=== PATIENT | male | born 1990 | race African-American/Black ===

== ENCOUNTER 2017-06-09 11:02 | Emergency (ER) | payer MEDICARE, OTHER ==
[~2017-06-09] VITALS: Ht 188 cm; Wt 82.1 kg
[2017-06-09 11:20] VITALS: BP 114/68
[2017-06-09] MEDS ORDERED: NEOM10DR32 RIGHT EAR (11:39)
--- NOTE | 2017-06-09 11:39 | PHYS DOC ---
Past Medical History Past Medical History: No Pertinent History Past Surgical History: No Surgical History Alcohol Use: Occasionally Drug Use: None Adult General Chief Complaint Chief Complaint: EARACHE/EAR PAIN [facility] HPI Patient is a 27 year old male presents to the emergency department with complaints of an abscess in the right ear. States it's been present for 4 days. No other complaints. Review of Systems Review of Systems Constitutional: Denies fever or chills [] Eyes: Denies change in visual acuity, redness, or eye pain [] HENT: Denies nasal congestion or sore throat [] Respiratory: Denies cough or shortness of breath [] Cardiovascular: No additional information not addressed in HPI [] GI: Denies abdominal pain, nausea, vomiting, bloody stools or diarrhea [] : Denies dysuria or hematuria [] Musculoskeletal: Denies back pain or joint pain [] Integument: Abscess Neurologic: Denies headache, focal weakness or sensory changes [] Endocrine: Denies polyuria or polydipsia [] Allergies Allergies Allergies Coded Allergies Type Severity Reaction Last Updated Verified No Known Drug Allergies 06/09/17 No Physical Exam Physical Exam Constitutional: Well developed, well nourished, no acute distress, non-toxic appearance. HEENT: Right external canal, proximal, fluctuant papular lesion without erythema. [] Neck: Normal range of motion, no tenderness, supple, no lymphadenopathy Cardiovascular:Heart rate regular rhythm, no murmur [] Lungs & Thorax: Bilateral breath sounds clear to auscultation [] Skin: Warm, dry, no erythema, no rash. [] EKG EKG [] Radiology/Procedures Radiology/Procedures Procedure note: Area of concern cleansed with alcohol wipe. #18-gauge utilized to perforate the abscess. Small amount of purulent discharge. Patient tolerated procedure well. [] Course & Med Decision Making Course & Med Decision Making Pertinent Labs and Imaging studies reviewed. (See chart for details) [] Dragon Disclaimer Dragon Disclaimer This electronic medical record was generated, in whole or in part, using a voice recognition dictation system. Departure Departure Impression: Primary Impression: Abscess, ear canal Disposition: 01 HOME, SELF-CARE Condition: STABLE Referrals: NO PCP (PCP) Patient Instructions: Abscess, Care After Scripts Neomycin/Polymyxin B Sulf/Hc (OIOPVVIX-JFIXJPYKH-ED EAR SUSP) 10 Ml Drops.susp 3 DROP RIGHT EAR TID for 10 Days, #10 ML Prov: ANA MARÍA HUDSON SENIOR GAMES TECHNICIAN 06/09/17 Problem Qualifiers Primary Impression: Abscess, ear canal Laterality: right Qualified Codes: H60.01 - Abscess of right external ear ANA MARÍA HUDSON SENIOR GAMES TECHNICIAN Jun 09, 2017 11:39
== END 2017-06-09 11:45 | disposition home or self-care (01) ==
LOC: ER 11:02
DX: H60.01 Abscess of right external ear (principal)
CPT/HCPCS: 69020; 99283; 99284-25

== ENCOUNTER 2017-10-29 17:11 | Emergency (ER) | payer OTHER, MEDICARE ==
[2017-10-29] MEDS: LIDOCAINE 2% 20 ML VIAL. IJ (18:04)
== END 2017-10-29 19:36 | disposition home or self-care (01) ==
LOC: ER 17:11
DX: L03.011 Cellulitis of right finger (principal); F17.210 Nicotine dependence, cigarettes, uncomplicated
CPT/HCPCS: 10060; 99283

== ENCOUNTER 2019-02-20 17:23 | Emergency (ER) | payer MEDICARE, OTHER ==
[~2019-02-20] VITALS: Ht 188 cm; Wt 87.5 kg
[~2019-02-20 17:23] MED LIST: CEPH500C PO; NEOM10DR32 RIGHT EAR; SULF1TAB24 PO
[2019-02-20 18:06] VITALS: BP 147/87
--- NOTE | 2019-02-20 18:58 | RAD ---
PROCEDURE: CHEST PA LATERAL CLINICAL INDICATION: ER PATIENT. NON PRODUCTIVE COUGH, RIGHT SIDE INTERMITTENT ATRAUMATIC CHEST PAIN. PRIOR XRAY. COMPARISON: None FINDINGS: No pneumothorax identified. Cardiac and mediastinal contours unremarkable. No pulmonary consolidation or acute airspace disease. No acute osseous abnormalities identified. IMPRESSION: No pulmonary consolidation or acute airspace disease. Electronically signed by: Joe Watts DO (02/20/2019 6:55 PM) [facility]
[2019-02-20] MEDS ORDERED: VENTOLIN HFA18 GM INH (19:05)
[2019-02-20] MEDS ORDERED: ASPI325T8 PO (19:05)
[2019-02-20] MEDS ORDERED: BENZ100C PO (19:05)
[2019-02-20] MEDS ORDERED: PRED50TA PO (19:05)
--- NOTE | 2019-02-20 19:05 | PHYS DOC ---
Past Medical History Past Medical History: No Pertinent History (CHARLI BERRIOS APRN) Past Surgical History: No Surgical History (CHARLI BERRIOS APRN) Alcohol Use: Occasionally Drug Use: None (CHARLI BERRIOS APRN) Adult General Chief Complaint Chief Complaint: COUGH HPI HPI Patient is a 28 year old male with history of smoking who presents to the ED today complaining of a productive cough for couple days. Patient denies any fever. Denies any nasal congestion. States his has chest pain on coughing. Patient also states he believes he has hypertension and would like to start his treatment. He states nobody has diagnosed him with it but he has several family members who have history of high blood pressure. (CHARLI BERRIOS APRN) Review of Systems Review of Systems Constitutional: Denies fever or chills [] Eyes: Denies change in visual acuity, redness, or eye pain [] HENT: Denies nasal congestion or sore throat [] Respiratory: Reports cough denies shortness of breath [] Cardiovascular: No additional information not addressed in HPI [] GI: Denies abdominal pain, nausea, vomiting, bloody stools or diarrhea [] : Denies dysuria or hematuria [] Musculoskeletal: Denies back pain or joint pain [] Integument: Denies rash or skin lesions [] Neurologic: Denies headache, focal weakness or sensory changes [] All other systems were reviewed and found to be within normal limits, except as documented in this note. (CHARLI BERRIOS APRN) Allergies Allergies Allergies Coded Allergies Type Severity Reaction Last Updated Verified No Known Drug Allergies 06/09/17 No (ADY DASILVA MD) Physical Exam Physical Exam Constitutional: Well developed, well nourished, no acute distress, non-toxic appearance. [] HENT: Normocephalic, atraumatic, bilateral external ears normal, oropharynx moist, no oral exudates, nose normal. [] Eyes: PERRLA, EOMI, conjunctiva normal, no discharge. [] Neck: Normal range of motion, no tenderness, supple, no stridor. [] Cardiovascular:Heart rate regular rhythm, no murmur [] Lungs & Thorax: Bilateral breath sounds clear to auscultation [] Abdomen: Bowel sounds normal, soft, no tenderness, no masses, no pulsatile masses. [] Skin: Warm, dry, no erythema, no rash. [] Back: No tenderness, no CVA tenderness. [] Extremities: No tenderness, no cyanosis, no clubbing, ROM intact, no edema. [] Neurologic: Alert and oriented X 3, normal motor function, normal sensory function, no focal deficits noted. [] Psychologic: Affect normal, judgement normal, mood normal. [] (CHARLI BERRIOS APRN) Current Patient Data Vital Signs Vital Signs Date Time Temp Pulse Resp B/P (MAP) Pulse Ox O2 Delivery O2 Flow Rate FiO2 02/20/19 18:06 98.6 98 16 147/87 (107) 97 Room Air 98.6 (ADY DASILVA MD) EKG EKG [] (CHARLI BERRIOS APRN) Radiology/Procedures Radiology/Procedures [] (CHARIL BERRIOS APRN) Course & Med Decision Making Course & Med Decision Making Pertinent Labs and Imaging studies reviewed. (See chart for details) This is a 28-year-old male patient presenting to the ED today complaining of cough, nasal smoker. Encouraged to consider smoking cessation, chest x-ray interpreted by radiologist as negative patient given prescription for aspirin as needed for pain. Given albuterol inhaler, prednisone, Tessalon Perles for bronchitis. We provided him a list of doctors to follow up as an outpatient because he states he believes he has high blood pressure and needs to be on medication. BP in the ED 147/87. (CHARLI BERRIOS APRN) Course & Med Decision Making 02/24/19 at 0606 was not involved in the care of this patient. Ady Dasilva M.D. (ADY DASILVA MD) Dragon Disclaimer Dragon Disclaimer This electronic medical record was generated, in whole or in part, using a voice recognition dictation system. (CHARLI BERRIOS APRN) Departure Departure Impression: Primary Impression: Acute bronchitis Additional Impression: Smoking addiction Disposition: 01 HOME, SELF-CARE Condition: STABLE Referrals: NO PCP (PCP) Follow-up with one of the doctors from the list provided Patient Instructions: Acute Bronchitis, [id number], Smoking Cessation Additional Instructions: You were evaluated in the emergency room, your symptoms are consistent with bronchitis, consider smoking cessation. Please contact one of the provided primary care doctors and follow-up for blood pressure management and care. Take the prescribed medications as ordered. Scripts Albuterol Sulfate (VENTOLIN HFA INHALER) 18 Gm Hfa.aer.ad 2 PUFF INH Q4HRS for FOR ASTHMA, #1 INHALER 0 Refills Prov: CHARLI BERRIOS APRN 02/20/19 Benzonatate (TESSALON PERLE) 100 Mg Capsule 1 CAP PO TID, #30 CAP Prov: CHARLI BERRIOS APRN 02/20/19 Prednisone (PREDNISONE) 50 Mg Tablet 1 TAB PO DAILY, #5 TAB Prov: CHARLI BERRIOS APRN 02/20/19 Aspirin (ASPIRIN) 325 Mg Tablet 1-2 TAB PO Q12HR PRN for PAIN, #30 TAB 5 Refills Prov: CHARLI BERRIOS APRN 02/20/19 Problem Qualifiers Primary Impression: Acute bronchitis Bronchitis organism: unspecified organism Qualified Codes: J20.9 - Acute bronchitis, unspecified CHARLI BERRIOS APRN Feb 20, 2019 19:05 ADY DASILVA MD Feb 24, 2019 06:07
== END 2019-02-20 19:12 | disposition home or self-care (01) ==
LOC: ER 17:23
DX: J20.9 Acute bronchitis, unspecified (principal); F17.200 Nicotine dependence, unspecified, uncomplicated
CPT/HCPCS: 71046; 99283

== ENCOUNTER 2019-10-28 19:31 | Emergency (ER) | payer MEDICARE, MEDICAID ==
[~2019-10-28] VITALS: Ht 188 cm; Wt 88.5 kg
[~2019-10-28 19:31] MED LIST changes: +ASPI325T8 PO; +BENZ100C PO; +PRED50TA PO; +VENTOLIN HFA18 GM INH
[2019-10-28 20:10] VITALS: BP 135/80
[2019-10-28] MEDS ORDERED: METH4TAB2 PO (20:53)
[2019-10-28] MEDS ORDERED: HYDR-3164 PO (20:53)
[2019-10-28] MEDS ORDERED: IBUP-1007 PO (20:53)
--- NOTE | 2019-10-28 20:53 | PHYS DOC ---
Past Medical History Past Medical History: No Pertinent History Past Surgical History: No Surgical History Alcohol Use: Occasionally Drug Use: None Adult General Chief Complaint Chief Complaint: GENERALIZED BODY ACHES HPI HPI Patient is a 29 year old male who presents with the [employer] and lifts heavy boxes that are over 50 pounds and does a lot of twisting at the waist. States he woke up with right sharp shooting pain down the right back of his leg and pain on the right side of his back. Patient rates pain 8 out of 10. He states he took ibuprofen. Review of Systems Review of Systems Musculoskeletal: back pain and right lower back pain or joint pain [] All other systems were reviewed and found to be within normal limits, except as documented in this note. Allergies Allergies Allergies Coded Allergies Type Severity Reaction Last Updated Verified No Known Drug Allergies 06/09/17 No Physical Exam Physical Exam Constitutional: Well developed, well nourished, no acute distress, non-toxic appearance. [] HENT: Normocephalic, atraumatic, bilateral external ears normal, oropharynx moist, no oral exudates, nose normal. [] Eyes: PERRLA, EOMI, conjunctiva normal, no discharge. [] Neck: Normal range of motion, no tenderness, supple, no stridor. [] Cardiovascular:Heart rate regular rhythm, no murmur [] Lungs & Thorax: Bilateral breath sounds clear to auscultation [] Abdomen: Bowel sounds normal, soft, no tenderness, no masses, no pulsatile masses. [] Skin: Warm, dry, no erythema, no rash. [] Back: Right lower back tenderness, no CVA tenderness. [] Extremities: No tenderness, no cyanosis, no clubbing, ROM intact, no edema. [] Neurologic: Alert and oriented X 3, normal motor function, normal sensory fu nction, no focal deficits noted. [] Psychologic: Affect normal, judgement normal, mood normal. [] Current Patient Data Vital Signs Vital Signs Date Time Temp Pulse Resp B/P (MAP) Pulse Ox O2 Delivery O2 Flow Rate FiO2 10/28/19 20:10 98.2 88 12 135/80 (98) 98 Room Air 98.2 Lab Values Laboratory Tests Test 10/28/19 20:35 Influenza Type A Antigen Negative (NEGATIVE) Influenza Type B Antigen Negative (NEGATIVE) EKG EKG [] Radiology/Procedures Radiology/Procedures [] Course & Med Decision Making Course & Med Decision Making Tenderness to the right back with palpation. There is no bruising or abrasion or swelling. Patient states the pain is worse with moving and if he is just sitting still the pain is not very bad. He states that the pain is an 8 out of 10 when he is moving. Patient is ambulatory with steady gait. Skin pink warm and dry. Speaks in full clear sentences. Alert and oriented. Patient denies numbness or tingling or incontinence. No weakness is in any extremities. No swelling in joints. Dragon Disclaimer Dragon Disclaimer This electronic medical record was generated, in whole or in part, using a voice recognition dictation system. Departure Departure Impression: Primary Impression: Back pain Additional Impression: Sciatic leg pain Disposition: HOME, SELF-CARE Condition: STABLE Referrals: NO PCP (PCP) Patient Instructions: Muscle Strain, Sciatica, [id number] Additional Instructions: Follow up with primary care provider or work comp. Take medications as prescribed. Use heating pad, over the counter icy hot. Scripts Ibuprofen (IBUPROFEN) 600 Mg Tablet 600 MG PO PRN Q6HRS PRN for INFLAMMATION, #20 TAB Prov: EVE SUGGS APRN 10/28/19 Hydrocodone/Apap 5-325 (NORCO 5-325 TABLET) 1 Each Tablet 1 TAB PO PRN Q6HRS PRN for PAIN, #8 TAB 0 Refills Prov: EVE SUGGS APRN 10/28/19 Methylprednisolone (MEDROL) 4 Mg Tab.ds.pk 1 PKG PO UD, #1 PKG Prov: EVE SUGGS APRN 10/28/19 Problem Qualifiers Primary Impression: Back pain Back pain location: thoracic back pain Chronicity: acute Back pain laterality: right Qualified Codes: M54.6 - Pain in thoracic spine EVE SUGGS APRN Oct 28, 2019 20:53
[2019-10-28 21:04] LABS: INFLUENZA A PATIENT NEGATIVE (NEGATIVE); INFLUENZA B PATIENT NEGATIVE (NEGATIVE)
== END 2019-10-28 21:01 | disposition home or self-care (01) ==
LOC: ER 19:31
DX: M54.41 Lumbago with sciatica, right side (principal); M54.6 Pain in thoracic spine
CPT/HCPCS: 87804; 99284

== ENCOUNTER 2019-11-26 20:11 | Emergency (ER) | payer MEDICARE, MEDICAID ==
[~2019-11-26] VITALS: Ht 188 cm; Wt 83.5 kg
[~2019-11-26 20:11] MED LIST changes: +HYDR-3164 PO; +IBUP-1007 PO; +METH4TAB2 PO
[2019-11-26 20:20] VITALS: BP 143/88
--- NOTE | 2019-11-26 21:15 | PHYS DOC ---
Past Medical History Past Medical History: No Pertinent History (CHARLI BERRIOS APRN) Past Surgical History: No Surgical History (CHARLI BERRIOS APRN) Alcohol Use: Occasionally Drug Use: None (CHARLI BERRIOS APRN) Adult General Chief Complaint Chief Complaint: LOWER EXT PAIN HPI HPI Patient is a 29 year old male who presents to the ED today complaining of 9 out of 10 right lower extremity pain that has been going on since last month. Patient reports the pain is worse when he is at work at [employer] because he has to bend lift and move boxes. Denies any known injury. He states has been seen in the ED and [facility] doctor but they could not find anything wrong with him. He he reports the pain is in his muscles describes the pain as throbbing. (CHARLI BERRIOS APRN) Review of Systems Review of Systems Constitutional: Denies fever or chills [] Musculoskeletal: Reports right lower extremity pain, denies back pain today Integument: Denies rash or skin lesions [] Neurologic: Denies headache, focal weakness or sensory changes [] All other systems were reviewed and found to be within normal limits, except as documented in this note. (CHARLI BERRIOS APRN) Allergies Allergies Allergies Coded Allergies Type Severity Reaction Last Updated Verified No Known Drug Allergies 06/09/17 No (LEXY ZIEGLER DO) Physical Exam Physical Exam Constitutional: Well developed, well nourished, no acute distress, non-toxic appearance. [] Back: No tenderness, no CVA tenderness. [] Extremities: No tenderness, no cyanosis, no clubbing, ROM intact, no edema. Negative Homans sign to the right lower extremity Neurologic: Alert and oriented X 3, normal motor function, normal sensory function, no focal deficits noted. [] Psychologic: Affect normal, judgement normal, mood normal. [] (CHARLI BERRIOS APRN) Current Patient Data Vital Signs Vital Signs Date Time Temp Pulse Resp B/P (MAP) Pulse Ox O2 Delivery O2 Flow Rate FiO2 11/26/19 20:20 97.7 86 18 143/88 (106) 95 Room Air 97.7 (LEXY ZIEGLER DO) EKG EKG [] (CHARLI BERRIOS APRN) Radiology/Procedures Radiology/Procedures [] (CHARLI BERRIOS APRN) Course & Med Decision Making Course & Med Decision Making Pertinent Labs and Imaging studies reviewed. (See chart for details) This is a 29-year-old male patient presenting to the ED today with musculoskeletal pain to the right lower extremity from working at [employer] where he has to bend or lift and carry boxes. Patient was also requesting a note for work for an extended period of time. Provided a note for work for 3 days. Informed him he has to follow up with the specialist or his own PCP or his own job if he needs more days. (CHARLI BERRIOS APRN) Dragon Disclaimer Dragon Disclaimer This electronic medical record was generated, in whole or in part, using a voice recognition dictation system. (CHARLI BERRIOS APRN) Departure Departure Impression: Primary Impression: Right leg pain Disposition: HOME, SELF-CARE Condition: STABLE Referrals: NO PCP (PCP) TAHIRA FERNANDEZ MD follow up in 1 week Patient Instructions: Musculoskeletal Pain Additional Instructions: You were evaluated in the emergency room with musculoskeletal pain to the right lower extremity. Try to ice and elevate the extremity. Take the prescribed medications as needed for pain. Kindly contact the provided orthopedic doctor and follow-up in 1-2 weeks. Scripts Diclofenac Potassium (DICLOFENAC POTASSIUM) 50 Mg Tablet 1 TAB PO BID, #20 TAB 0 Refills Prov: CHARLI BERRIOS APRN 11/26/19 Cyclobenzaprine Hcl (CYCLOBENZAPRINE HCL) 10 Mg Tablet 1 TAB PO TID, #30 TAB Prov: CHARLI BERRIOS APRN 11/26/19 Attending Signature Attending Signature I have reviewed the PA/[employer]GER's note and plan of care. I was available for consultation as needed at all times during the patient's visit in the emergency department. I agree with the clinical impression, plan and disposition. (LEXY ZIEGLER DO) CHARLI BERRIOS APRN Nov 26, 2019 21:15 LEXY ZIEGLER DO Nov 28, 2019 19:19
[2019-11-26] MEDS ORDERED: DICL50TA2 PO (21:23)
[2019-11-26] MEDS ORDERED: CYCL10TA2 PO (21:23)
== END 2019-11-26 21:30 | disposition home or self-care (01) ==
LOC: ER 20:11
DX: M79.604 Pain in right leg (principal); X50.9XXA Other and unspecified overexertion or strenuous movements or postures, initial encounter; Y93.89 Activity, other specified; Y92.59 Other trade areas as the place of occurrence of the external cause; Y99.0 Civilian activity done for income or pay
CPT/HCPCS: 99283

== ENCOUNTER 2020-08-26 10:09 | Emergency (ER) | payer MEDICARE, MEDICAID ==
[~2020-08-26] VITALS: Ht 177.8 cm; Wt 88.6 kg
[~2020-08-26 10:09] MED LIST changes: +CYCL10TA2 PO; +DICL50TA2 PO
[2020-08-26] MEDS ORDERED: LIDOCAINE 1% PF 2 ML VIAL. INJ ONE (11:30)
[2020-08-26] MEDS ORDERED: CLIN150C14 PO (12:38)
--- NOTE | 2020-08-26 12:39 | PHYS DOC ---
Past Medical History Past Medical History: No Pertinent History Past Surgical History: No Surgical History Smoking Status: Current Every Day Smoker Additional Information: 11/20 ppd Alcohol Use: Occasionally Drug Use: None General Adult EDM: Chief Complaint: ABSCESS HPI: HPI: Patient is a 30 year old AA male who presents to the emergency department with complaints of a red, tender, abscess to the right side of his face that began a month ago. Patient states he is tried to squeeze the area but has not had any blood or pus drained from it. He denies any fever, dental pain, sore throat, ear pain, neck pain, headache, numbness, tingling, or weakness of the affected area. He is unsure when his last tetanus shot was. He currently rates his pain a 9 out of 10 on the pain scale, he denies any alleviating factors the pain is worse if the area is touched. Review of Systems: Review of Systems: Complete ROS is negative unless otherwise stated in the HPI. Heart Score: Risk Factors: Risk Factors: DM, Current or recent (<one month) smoker, HTN, HLP, family history of CAD, obesity. Risk Scores: Score 0 - 3: 2.5% MACE over next 6 weeks - Discharge Home Score 4 - 6: 20.3% MACE over next 6 weeks - Admit for Clinical Observation Score 7 - 10: 72.7% MACE over next 6 weeks - Early Invasive Strategies Current Medications: Current Medications Medications (Trade) Dose Ordered Sig/Tucker Start Time Stop Time Status Last Admin Dose Admin Diphtheria/ Tetanus/Acell Pertussis (ADACEL TDap SYRINGE) 0.5 ml ONCE ONCE 08/26/20 12:30 08/26/20 12:31 UNV Lidocaine HCl (Xylocaine-Mpf 1% 2ml Vial) 6 ml 1X ONCE 08/26/20 11:30 08/26/20 11:31 DC 08/26/20 11:47 6 ML Allergies: Allergies: Allergies Coded Allergies Type Severity Reaction Last Updated Verified No Known Drug Allergies 06/09/17 No Physical Exam: PE: Constitutional: Well developed, well nourished, no acute distress, non-toxic appearance. [] HENT: Normocephalic, atraumatic, bilateral external ears normal, nose normal. [] Eyes: PERRLA, EOMI, conjunctiva normal, no discharge. [] Neck: Normal range of motion, supple, nontender, no stridor. [] Cardiovascular:Heart rate regular rhythm Lungs & Thorax: Respirations even and unlabored, no retractions, no respiratory distress Skin: Warm, dry; 3 cm diameter area of edema, erythema, and warmth noted to righ t lower cheek of face with central pustule, no active bleeding or discharge consistent with a cutaneous abscess. Extremities: No cyanosis, ROM intact, no edema. [] Neurologic: Alert and oriented X 3, no focal deficits noted. [] Psychologic: Affect normal, judgement normal, mood normal. [] Current Patient Data: Vital Signs: Vital Signs Date Time Temp Pulse Resp B/P (MAP) Pulse Ox O2 Delivery O2 Flow Rate FiO2 08/26/20 10:45 98.2 80 20 129/75 (93) 97 Room Air 98.2 EKG: EKG: [] Radiology/Procedures: Radiology/Procedures: Indication: abscess Procedure: The patient was positioned appropriately. Local anesthesia was lidocaine with epinephrine. An incision was then made over the apex of the lesion and large amount of bloody pus material was expressed. The drainage cavity was irrigated with 20 mL of normal saline and packed with sterile gauze. The patients tetanus status updated as needed. There was minimal blood loss. The patient tolerated the procedure well. Complications: none.[] Course & Med Decision Making: Course & Med Decision Making Pertinent Labs and Imaging studies reviewed. (See chart for details) [] Dragon Disclaimer: Dragon Disclaimer: This electronic medical record was generated, in whole or in part, using a voice recognition dictation system. Departure Departure Impression: Primary Impression: Cutaneous abscess of face Disposition: 01 DC HOME SELF CARE/HOMELESS Condition: STABLE Referrals: NO PCP (PCP) Patient Instructions: Abscess, Care After Additional Instructions: Fill the prescription(s) and use as directed. You may take tylenol or ibuprofen as needed for pain. Leave the Dressing that was placed in the ER in place for the next 24 hours, then change the dressing twice daily and apply antibiotic ointment as needed. You may apply warm, moist packs to the area to help decrease discomfort. Follow up with your primary care doctor or return to the ER in 48 hours to have wound rechecked and packing removed. Return to the ER sooner if your symptoms worsen or you develop a fever Scripts Clindamycin Hcl (CLINDAMYCIN HCL) 150 Mg Capsule 450 MG PO TID for 7 Days, #63 CAP 0 Refills Prov: SHREYAS MCCANN APRN 08/26/20 SHREYAS MCCANN APRN Aug 26, 2020 12:39
[2020-08-26 12:43] VITALS: BP 161/76
[2020-08-26] MEDS ORDERED: DIPH,PERTUSS(ACELL),TET VAC/PF 0.5 ML SYRINGE. VAX IM ONE (12:45)
== END 2020-08-26 13:13 | disposition home or self-care (01) ==
LOC: ER 10:09
DX: L02.01 Cutaneous abscess of face (principal); R60.0 Localized edema; L53.9 Erythematous condition, unspecified; F17.200 Nicotine dependence, unspecified, uncomplicated
CPT/HCPCS: 10061; 90471; 90715; 99284; J3490

== ENCOUNTER 2020-08-28 11:24 | Emergency (ER) | payer MEDICARE, MEDICAID ==
[~2020-08-28] VITALS: Ht 190.5 cm; Wt 88.4 kg
[~2020-08-28 11:24] MED LIST changes: +CLIN150C14 PO
[2020-08-28 11:44] VITALS: BP 123/88
--- NOTE | 2020-08-28 12:21 | PHYS DOC ---
Past Medical History Past Medical History: No Pertinent History Past Surgical History: No Surgical History Smoking Status: Current Every Day Smoker Alcohol Use: Occasionally Drug Use: None General Adult EDM: Chief Complaint: WOUND RECHECK/SUTURE REMOVAL HPI: HPI: Patient is a 30 year old male who presents with 2 days ago had a I&D done to the right check with packing applied. Patient states he has been taking the clindamycin and is feeling better and there is less pain and tenderness. Denies fevers, nausea, vomiting, chest pain, soa, chills, increased facial pain, increased swelling, increased redness. Denies any pain. Review of Systems: Review of Systems: Constitutional: Denies fever or chills. [] Eyes: Denies change in visual acuity. [] HENT: Denies nasal congestion or sore throat. [] Respiratory: Denies cough or shortness of breath. [] Cardiovascular: Denies chest pain or edema. [] GI: Denies abdominal pain, nausea, vomiting, bloody stools or diarrhea. [] : Denies dysuria. [] Musculoskeletal: Denies back pain or joint pain. [] Integument: Denies rash. Open abscess to right cheek with packing in place. [] Neurologic: Denies headache, focal weakness or sensory changes. [] Endocrine: Denies polyuria or polydipsia. [] Lymphatic: Denies swollen glands. [] Psychiatric: Denies depression or anxiety. [] Heart Score: Risk Factors: Risk Factors: DM, Current or recent (<one month) smoker, HTN, HLP, family history of CAD, obesity. Risk Scores: Score 0 - 3: 2.5% MACE over next 6 weeks - Discharge Home Score 4 - 6: 20.3% MACE over next 6 weeks - Admit for Clinical Observation Score 7 - 10: 72.7% MACE over next 6 weeks - Early Invasive Strategies Allergies: Allergies: Allergies Coded Allergies Type Severity Reaction Last Updated Verified No Known Drug Allergies 06/09/17 No Physical Exam: PE: Constitutional: Well developed, well nourished, no acute distress, non-toxic appearance. [] HENT: Normocephalic, atraumatic, bilateral external ears normal, oropharynx moist, no oral exudates, nose normal. [] Eyes: PERRLA, EOMI, conjunctiva normal, no discharge. [] Neck: Normal range of motion, no tenderness, supple, no stridor. [] Cardiovascular:Heart rate regular rhythm, no murmur [] Lungs & Thorax: Bilateral breath sounds clear to auscultation [] Abdomen: Bowel sounds normal, soft, no tenderness, no masses, no pulsatile masses. [] Skin: Warm, dry, no erythema, no rash. Open abscess to right cheek with scant purulent green, white drainage. Packing is removed. [] Back: No tenderness, no CVA tenderness. [] Extremities: No tenderness, no cyanosis, no clubbing, ROM intact, no edema. [] Neurologic: Alert and oriented X 3, normal motor function, normal sensory function, no focal deficits noted. [] Psychologic: Affect normal, judgement normal, mood normal. [] Current Patient Data: Vital Signs: Vital Signs Date Time Temp Pulse Resp B/P (MAP) Pulse Ox O2 Delivery O2 Flow Rate FiO2 08/28/20 11:44 97.9 97 16 123/88 (100) 98 97.9 EKG: EKG: [] Radiology/Procedures: Radiology/Procedures: [] Course & Med Decision Making: Course & Med Decision Making Pertinent Labs and Imaging studies reviewed. (See chart for details) See HPI. Packing is removed. There is no purulent green-white drainage. There is no cellulitis seen. There is minimal swelling to the area. Afebrile. Patient states is feeling and looking much better. New dressing is applied. Patient to continue taking the clindamycin. Patient is told that if he feels that he is not getting better or it starts to look worse he can return to the emergency room. [] Christine Disclaimer: Christine Disclaimer: This electronic medical record was generated, in whole or in part, using a voice recognition dictation system. Departure Departure Impression: Primary Impression: Encounter for wound re-check Disposition: 01 DC HOME SELF CARE/HOMELESS Condition: STABLE Referrals: NO PCP (PCP) Patient Instructions: Wound Care, [id number], Wound Check Additional Instructions: Follow-up of primary care provider if needed. Watch for signs of infection. Always return to emergency room if you feel like the wound is getting worse. Continue taking your antibiotic as prescribed. You can also apply antibiotic ointment to the area. Keep it clean and covered. EVE SUGGS SET UP / OPERATOR Aug 28, 2020 12:21
== END 2020-08-28 12:34 | disposition home or self-care (01) ==
LOC: ER 11:24
DX: L02.01 Cutaneous abscess of face (principal); R60.0 Localized edema; F17.200 Nicotine dependence, unspecified, uncomplicated
CPT/HCPCS: 99282

== ENCOUNTER 2021-04-16 11:07 | Emergency (ER) | payer OTHER, MEDICAID ==
[~2021-04-16] VITALS: Ht 188 cm; Wt 93.5 kg
[~2021-04-16 11:07] MED LIST changes: -CLIN150C14 PO; +CLIN150C15 PO
[2021-04-16 11:15] VITALS: BP 139/88
[2021-04-16] MEDS ORDERED: CEPH500C PO (12:08)
[2021-04-16] MEDS ORDERED: SULF1TAB24 PO (12:08)
--- NOTE | 2021-04-16 12:10 | PHYS DOC ---
Past Medical History Past Medical History: No Pertinent History Past Surgical History: No Surgical History Smoking Status: Current Every Day Smoker Alcohol Use: Occasionally Drug Use: None General Adult EDM: Chief Complaint: SKIN PROBLEM HPI: HPI: 30-year-old AA male presents the ED with complaints of raised bump over his right cheek that has been present for the past 4 months, has increased in size over the past 1 month, requesting to "cut it out." States he was seen here and had an I&D awhile back. Patient denies any history of diabetes, immunocompromised state or history of MRSA. Is not on any antibiotics. Reports he is not concerned about cosmetic appearance, no history of keloids. Review of Systems: Review of Systems: Constitutional: Denies fever or chills. [] Eyes: Denies change in visual acuity. [] HENT: Denies nasal congestion or sore throat. [] Respiratory: Denies cough or shortness of breath. [] Cardiovascular: Denies chest pain or edema. [] GI: Denies abdominal pain, nausea, vomiting, bloody stools or diarrhea. [] : Denies dysuria. [] Musculoskeletal: Denies back pain or joint pain. [] Integument: Denies rash. [] Neurologic: Denies headache, focal weakness or sensory changes. [] Endocrine: Denies polyuria or polydipsia. [] Lymphatic: Denies swollen glands. [] Psychiatric: Denies depression or anxiety. [] Heart Score: C/O Chest Pain: No Risk Factors: Risk Factors: DM, Current or recent (<one month) smoker, HTN, HLP, family history of CAD, obesity. Risk Scores: Score 0 - 3: 2.5% MACE over next 6 weeks - Discharge Home Score 4 - 6: 20.3% MACE over next 6 weeks - Admit for Clinical Observation Score 7 - 10: 72.7% MACE over next 6 weeks - Early Invasive Strategies Allergies: Allergies: Allergies Coded Allergies Type Severity Reaction Last Updated Verified No Known Drug Allergies 06/09/17 No Physical Exam: PE: Constitutional: Well developed, well nourished, no acute distress, non-toxic appearance. HENT: Normocephalic, atraumatic, right check with raised soft 1.5x1.5 lesion over cheek bones (no oral involvement) with no associated rash or induration Eyes: EOMI, conjunctiva normal, no discharge. Neck: Normal range of motion, supple, Cardiovascular: S1/2 present, regular rhythm Lungs & Thorax: Speaking in full sentences, bilateral equal chest rise, no tachypnea or increased work of breathing Abdomen: soft, no tenderness, Skin: Warm, dry, no erythema, no rash. [] Extremities: No tenderness, no cyanosis, no lower extremity edema Neurologic: Alert and oriented X 3, normal motor function, normal sensory function, no focal deficits noted. [] Psychologic: Affect normal, judgement normal, mood normal. [] Current Patient Data: Vital Signs: Vital Signs Date Time Temp Pulse Resp B/P (MAP) Pulse Ox O2 Delivery O2 Flow Rate FiO2 04/16/21 11:15 98.1 83 16 139/88 (105) 99 Room Air 98.1 EKG: EKG: [] Radiology/Procedures: Radiology/Procedures: [] Course & Med Decision Making: Course & Med Decision Making Pertinent Labs and Imaging studies reviewed. (See chart for details) Concern for right facial abscess x4 months?? vs dermoid cysts vs ingrown hair? Given duration of symptoms and physical exam, will start oral antibiotics to cover for community-acquired MRSA and have patient follow-up with dermatology or plastic surgery for urgent follow-up and definitive management. Will discharge home with strict ED return precautions were given for fever, rash, neck pain, difficulties breathing or facial swelling. Encouraged urgent outpatient follow- up with PMD/wound care in 48 h for wound check, definitive management with plastic surgery dermatology referrals given. Life-threatening processes were considered but are low suspicion at this time, given history, physical exam and ED workup. Pt was educated on all prescription medications and adverse effects. All patient's questions were answered and pt was stable at time of discharge. Life/limb-threatening differential includes but is not limited to, erythema multiforme, melgar-jerilyn syndrome, toxic epidermal necrolysis, staphylococcal scalded skin syndrome, necrotizing fasciitis/myositis/cellulitis, purpura fulminans, heparin or warfarin induced skin necrosis, angioedema, anaphylaxis drug rash, disseminated intravascular coagulation, disseminated gonococcal disease, vasculitis, septicemia, petechial disorder or coagulopathy, viral exanthem, Kawasaki's disease or life-threatening burn requiring burn center management or escharotomy. I spoken with the patient and her caregivers. I explained the patient's condition, diagnoses and treatment plan based on the information available to me at this time. I have answered the patient and her caregiver's questions and addressed any concerns. The patient and her caregivers have a good understanding of patient's diagnosis, condition and treatment plan as can be expected at this point. Vital signs have been stable. Patient's condition is stable and appropriate for discharge from the emergency department. Patient will pursue further outpatient evaluation with primary care physician or other designated or consulting physician as outlined in the discharge inst ructions. The patient and/or caregivers are agreeable to this plan of care and follow-up instructions have been explained in detail. The patient and/or caregivers have received these instructions in written form and have expressed an understanding of the discharge instructions. The patient and/or caregivers are aware that any significant change of condition or worsening of symptoms should prompt immediate return to this or the closest emergency department or call to 911. Christine Disclaimer: Christine Disclaimer: This electronic medical record was generated, in whole or in part, using a voice recognition dictation system. Departure Departure Impression: Primary Impression: Cutaneous abscess of face Disposition: 01 HOME / SELF CARE / HOMELESS Condition: STABLE Referrals: NO PCP (PCP) wound check in 48 hours or FOLLOW UP WITH FAMILY MEDICINE: [address] [place] [address] Patient Instructions: Abscess, Ingrown Hair Additional Instructions: FOLLOW UP WITH WOUND CARE: In 48 hours [facility] [address], [address] [place] [address] Dermatology [place] [address] [place] [address] OR Follow up as needed with plastic surgery: For definitive management Angela Sánchez MD Plastic & Reconstructive Surgery [facility] Plastic Surgery, [address] [place] [address] EMERGENCY DEPARTMENT GENERAL DISCHARGE INSTRUCTIONS Thank you for coming to [facility] Emergency Department (ED) today and trusting us with you care. We trust that you had a positive experience in our Emergency Department. If you wish to speak to the department management, you may call the Director at [phone]. YOUR FOLLOW UP INSTRUCTIONS ARE FOLLOWS: 1. Do you have a private Doctor? If you do not have a private doctor, please ask for a resource list of physicians or clinics that may be able to assist you with follow up care. 2. The Emergency Physicain has interpreted your x-rays. The X-Ray specialist will also review them. If there is a change in the findings, you will be notified in 48 hours when at all possible. 3. A lab test or culture has been done, your results will be reviewed and you will be notified if you need a change in treatment. ADDITIONAL INSTRUCTIONS AND INFORMATION: 1. Your care today has been supervised by a physician who is specially trained in emergency care. Many problems require more than one evaluation for a complete diagnosis and treatment. We recommend that you schedule your follow up appointment as recommended to ensure complete treatment of you illness or injury. If you are unable to obtain follow up care and continue to have a problem, or if your condition worsens, we recommend that you return to the ED. 2. We are not able to safely determine your condition over the phone nor are we able to give sound medical advice over the phone. For these safety reasons, if you call for medical advice we will ask you to come to the ED for further evaluation. 3. If you have any questions regarding these discharge instructions please call the ED at [phone]. SAFETY INFORMATION: In the interest of safety, wellness, and injury prevention; we encourage you to wear your sealbelt, if you smoke; quite smoking, and we encourage family to use a protective helmet for bicycling and other sporting events that present an increased risk for head injury. IF YOUR SYMPTOMS WORSEN OR NEW SYMPTOMS DEVELOP, OR YOU HAVE CONCERNS ABOUT YOUR CONDITION; OR IF YOUR CONDITION WORSENS WHILE YOU ARE WAITING FOR YOUR FOLLOW UP APPOINTMENT; EITHER CONTACT YOUR PRIMARY CARE DOCTOR, THE PHYSICIAN WHOSE NAME AND NUMBER YOU WERE GIVEN, OR RETURN TO THE ED IMMEDIATELY. Scripts Sulfamethoxazole/Trimethoprim (BACTRIM DS TABLET) 1 Each Tablet 1 TAB PO BID for infection for 10 Days, #20 TAB Prov: MANOLO HERNANDEZ DO 04/16/21 Cephalexin (CEPHALEXIN) 500 Mg Capsule 1 CAP PO QID for 10 Days, #40 CAP Prov: MANOLO HERNANDEZ DO 04/16/21 MANOLO HERNANDEZ DO April 16, 2021 12:10
== END 2021-04-16 12:23 | disposition home or self-care (01) ==
LOC: ER 11:07
DX: L02.01 Cutaneous abscess of face (principal); F17.200 Nicotine dependence, unspecified, uncomplicated
CPT/HCPCS: 99283